=== PATIENT | male | born 1970 | race African-American/Black ===

== ENCOUNTER 2016-10-06 13:12 | Emergency (ER) | payer OTHER ==
--- NOTE | 2016-10-07 16:21 | ED NURSING NOTES ---
Clinical Report - Nurses [facility] [address] [place] [address] 10/06/2016 13:12 Patient: CHING AVITIA TRIAGE Triage time 13:Oct 06 2016. Acuity: LEVEL 5. Chief Complaint: DEPRESSION and SUICIDAL THOUGHTS and (Patient has been struggling with self harm for 2 years). 13:34 10/06/16. SEPSIS SCREEN: Sepsis Screen. Negative (no infection suspected/documented). DONNA COMA SCORE: Donna Coma Scale: 15- eyes open spontaneously (4); best verbal response- oriented x 4 (5); best motor response- obeys commands (6). --13:34 Arlene Quintana R.N. 13:27 10/06/16. BP: 155/99 (large adult cuff) taken on the right arm, while sitting. HR: 72 (regular). RR: 18 (regular). O2 saturation: 98% on room air. Temp: 99 F. Pain level now: 0/10. --13:34 Arlene Quintana R.N. late entry - 13:35 10/06/16. --13:43 Arlene Quintana R.N. 13:35 10/06/16. --13:35 Arlene Quintana R.N. late entry - 13:27. --18:02 Alrene Quintana R.N. Weight: 105.2 kg stated. Height/Length: 73 inches Per Patient. BMI: 30.6. --13:25 Arlene Quintana R.N. Medications Unknown. --13:31 Arlene Quintana R.N. Allergies No Known Drug Allergy. --13:31 Arlene Quintana R.N. History <<STRICKEN ENTRY-- Arrived by EMS, and from home. Historian: patient. ( Patient has a been struggling with self harm for two years, his PCP called 911 to transport patient to ER because patient said he had a knife and was threatening to harm himself). SOCIAL HX: Current every day light tobacco smoker. History of occasional drug use: marijuana. No alcohol use. NUTRITIONAL RISK ASSESSMENT: The nutritional risk assessment revealed no deficiencies. FUNCTIONAL ASSESSMENT: Functional assessment: no impairments noted. LEARNING NEEDS ASSESSMENT: The learning needs assessment revealed no barriers. SKIN INTEGRITY ASSESSMENT: Skin integrity risk assessment completed. No skin integrity risk identified. --13:34 Arlene Quintana R.N. --END STRIKE>> Correction --13:41 Arlene Quintana R.N. ( Arrived by EMS, and from home. Historian: patient. ( Patient has a been struggling with self harm for two years, his counselor Michelle Lopez called 911 to transport patient to ER because patient said he had a knife and was threatening to harm himself).). --13:43 Arlene Quintana R.N. ( Patients items are in locker #1 with lock #2). --18:02 Arlene Quintana R.N. PROBLEMS: Suicidal thoughts. Depression. --13:31 Arlene Quintana R.N. Schizoaffective Disorder. --09:56 Jesús Boyd R.N. ADDITIONAL SURGERIES: no known surgeries. Interventions ID band on patient. To treatment room. --13:34 Arlene Quintana R.N. PHYSICAL ASSESSMENT 13:36 10/06/16. To room via stretcher. Patient gowned. GENERAL / NEURO / PSYCH: Appears in no acute distress. Poor eye contact. He describes suicidal thoughts. ( Patient walks with cane). RESPIRATORY: Respirations not labored. --13:36 Arlene Quintana R.N. NURSING PROGRESS NOTES 13:36 17. Patient gowned. Head of bed elevated. Reassurance given. Two patient identifiers checked. Side rails up x 1. Bed placed in lowest position. Brakes of bed on. Patient ready for evaluation- chart flagged. --13:36 Arlene Quintana R.N. late entry -13:36. Suicide precautions initiated: a safety sweep of the room has been completed. Room made safe and stripped of hazardous items. Continuous one on one supervision, clothing / valuables removed and placed in the safe, meds removed and placed in the safe. Patient placed in direct sight of the nurse's station (Patient dressed in yellow gown). --13:40 Arlene Quintana R.N. 15:55 10/06/16. BP: 161/103 (large adult cuff) taken on the right arm, via an automated monitor, while lying. RN notified. HR: 69. RR: 20. O2 saturation: 99% on room air. Temp: 97.9 F (oral). --15:56 Natasha Edwards 16:19 10/06/16. ( Asked if patient can leave a urine and he says he can't at this time, offered sandwich and water. Patient accepted sandwich and soda pop). --16:19 Arlene Quintana R.N. 18:04 10/06/16. ( Patient doing well, he doesn't need anything at this time.). --18:04 Arlene Quintana R.N. 18:03 10/06/16. BP: 147/93 (large adult cuff) taken on the right arm, while sitting. HR: 75. RR: 16. O2 saturation: 95% on room air. Temp: 98.7 F (oral). Pain level now: 0/10. --18:04 Arlene Quintana R.N. 18:21 10/06/16. ( [facility] has arrived and is with patient). --18:21 Arlene Quintana R.N. 07:12 10/07/16. Care transferred and report received (Biju). ( Patient sleeping when checked on patient). --07:13 Arlene Quintana R.N. 08:57 10/07/16. ( Patient finished breakfast about an hour ago, he says he doesn't need anything at this time). --08:57 Arlene Quintana R.NSergio 08:56 10/07/16. BP: 141/88 (large adult cuff) taken on the right arm, while lying. HR: 86. RR: 18. O2 saturation: 96% on room air. Temp: 98.3 F. Pain level now: 0/10. --08:57 Arlene Quintana R.NSergio 10:55 10/07/16. ( Patient doing well, sleeping after using urinal). --10:55 Arlene Quintana R.N. 12:01 10/07/16. ( Patient had lunch and says he does not need anything more at this time). --12:01 Arlene Quintana R.N. 13:23 10/07/16. ( Checked on patient he does not need anything at this time). --13:23 Arlene Quintana R.N. 13:35 10/07/16. ( PAT team here to evaluate patient). --13:35 Arlene Quintana R.N. 17:18 10/07/16. ( Patient given clothes and all items to patient). --17:18 Arlene Quintana R.N. 17:19 10/07/16. ( [facility] has been called and ETA 1720). --17:19 Arlene Quintana R.N. DISPOSITION / DISCHARGE 17:37 10/07/16. Departure time: 1730. Condition at departure: improved and stable. No learning barriers present. Discharge instructions provided and reviewed with the patient. Reviewed referrals. Patient verbalized understanding. Written instructions provided in [place]. The patient was discharged by the physician. He was discharged home. He left the Emergency Department ambulatory and via ([facility]). --17:37 Jesús Boyd R.N. 17:00 10/07/16. BP: 140/88. HR: 80. RR: 16. O2 saturation: 97% on room air. Temp: 98.3 F (oral). Pain level now: 0/10. --17:37 Jesús Boyd R.N. Locked/Released at 10/07/2016 18:31 by Arlene Quintana R.N.
--- NOTE | 2016-10-07 16:21 | ED ORDER SUMMARY ---
..... Patient: CHING AVITIA OrderSheet [facility] VisitID: [id number] [address] [place] [address] 46y, M Registration Date/Time: 10/06/2016 ORDER SHEET Weight: 105.2 kg (stated) Allergies: No Known Drug Allergy GENERAL ORDERS: CBC w Diff Urgent (14:34 10/06/2016 Sarah Muñoz) (Ack 14:36 Jihan) (16:16 JSanders R.N.) CMP Urgent (14:34 10/06/2016 Sarah Muñoz) (Ack 14:36 Katener) (16:16 JSanders R.N.) PT with INR Urgent (14:34 10/06/2016 Sarah Muñoz) (Ack 14:36 KARLAoebinhner) (16:16 JSanders R.N.) Ethyl Alcohol Urgent (14:34 10/06/2016 Sarah Muñoz) (Ack 14:36 Katener) (16:17 JSanders R.N.) Salicylate Level Urgent (14:34 10/06/2016 Sarah Muñoz) (Ack 14:36 Katener) (16:17 JSanders R.N.) Acetaminophen Level Urgent (14:34 10/06/2016 Sarah Muñoz) (Ack 14:36 KARLAoekasia) (16:17 JSanders R.N.) Urine Drug Screen Urgent (14:34 10/06/2016 Sarah Muñoz) (Ack 14:36 Jihan) (16:26 JSanders R.N.) Diet (Please order in [employer]) (finger foods only) (19:54 10/06/2016 Sarah Muñoz) (Ack 21:39 CHategekimana) (21:39 CHategekimana) MEDICATION ORDERS: IV FLUIDS: ORDER SHEET NOTES: [Electronically signed by Arlene Quintana R.N. (18:31 10/07/2016)] [Electronically signed by Noemi Richter MD (06:05 10/11/2016)] [Electronically locked/signed by Arlene Quintana R.N. (18:31 10/07/2016)]
--- NOTE | 2016-10-07 16:21 | ED CLINICAL REPORT ---
Clinical Report - Physicians/Mid Levels [facility] [address] [place] [address] 10/06/2016 13:12 Patient: CHING AVITIA Time Seen: 1327. Arrived- By ambulance. Historian- patient. Referred by a clinic. HISTORY OF PRESENT ILLNESS Chief Complaint: DEPRESSED and SUICIDAL THOUGHTS and AUDITORY HALLUCINATIONS. This started about 2 days ago. The patient has experienced situational problems related to monetary problems and being homeless but was not found wandering and is compliant with medication. No recent drug use or alcohol consumption. Has been depressed. Has had suicidal thoughts (Knife). Has briefly considered suicide. Has highly lethal plan for suicide. The method is available. He has had moderate auditory hallucinations (Telling him to harm himself). The symptoms are described as moderate. No injury is present. Similar symptoms previously: Recent medical care: The patient was seen recently by a health care provider. REVIEW OF SYSTEMS No headache, dizziness, palpitations, abdominal pain or vomiting. No diarrhea, black stools, fever, sore throat or cough. No difficulty breathing, urinary frequency, skin rash, enlarged lymph nodes or joint pain. No laceration. All systems otherwise negative, except as recorded above. PAST HISTORY ( Suicidal thoughts. Depression.). Surgeries: No history of previous surgery. Additional Surgeries: no known surgeries. Medications: Unknown. Allergies: No Known Drug Allergy. SOCIAL HISTORY Smoker - current status unknown. History of drug use: marijuana. Has place to stay (For now, may be homeless soon). ADDITIONAL NOTES The nursing notes have been reviewed with agreement regarding the chief complaint, PMH and patient medications and allergies. PHYSICAL EXAM Vital Signs: 10/06/2016 13:27 BP: 155/99. HR: 72. RR: 18. O2 saturation: 98%. Temp: 99 F. Pain level now: 0/10. Have been reviewed. Hypertensive. Heart rate normal. Respiratory rate normal. Temperature normal. Oxygen saturation normal. Appearance: Alert. No acute distress. Appearance is normal. Eyes: Pupils equal, round and reactive to light. Neck: Normal inspection. Neck supple. CVS: Normal heart rate and rhythm. Heart sounds normal. Respiratory: No respiratory distress. Breath sounds normal. Abdomen: Soft and nontender. Back: No tenderness. Skin: Skin warm and dry. Normal skin color. Normal skin turgor. Extremities: Extremities exhibit normal ROM. No lower extremity edema. Psych / Neuro: Oriented X 3. Mood and affect normal. Speech normal. Cognition normal. Thought process and content normal. Insight and judgement normal. No motor deficit. No sensory deficit. LABS, X-RAYS, AND EKG Laboratory Tests: CBC w Diff: (JIM: 10/06/2016 14:14) ( MsgRcvd 10/06/2016 14:56) Final results Test Result Flag Units (Reference) WHITE BLOOD COUNT 6.2 K/uL (4.5-11.5) RED BLOOD COUNT 5.35 M/uL (4.50-5.90) HEMOGLOBIN 14.9 gm/dL (13.5-17.5) HEMATOCRIT 45.1 % (41.0-53.0) MEAN CELL VOLUME 84 fL (80-100) MEAN CORPUSCULAR HGB 28 pg (26-34) MEAN CORPUSCULAR HGB CONC 33 g/dL (31-37) RED CELL DISTRIBUTION WIDTH 15.5 H % (11.6-14.8) PLATELET COUNT 248 K/uL (150-400) NEUTROPHIL % 56.8 % (50-75) LYMPH % 35.3 % (25-40) MONO % 6.5 % (3-14) EOSINOPHIL % 0.7 % (0-4) BASOPHIL % 0.7 % (0-2) PT with INR: (JIM: 10/06/2016 14:14) ( MsgRcvd 10/06/2016 14:59) Final results Test Result Flag Units (Reference) INR 1.1 (0.8-1.2) Low Intensity Therapy: INR 1.5-2.0 PT range 18.5-23.1Mod.Intensity Therapy: INR 2.0-3.0 PT range 23.1-31.5High Intensity Therapy: INR 2.5-3.5 PT range 27.4-35.5High Intensity Therapy 2: INR 3.0-4.0 PT range 31.5-39.3 Urine Drug Screen: (JIM: 10/06/2016 16:23) ( [facility] 10/06/2016 17:02) Final results Test Result Flag Units (Reference) AMPHETAMINE/METHAMPHETAMINE NEGATIVE (NEGATIVE) BARBITURATE NEGATIVE (NEGATIVE) BENZODIAZEPINE NEGATIVE (NEGATIVE) CANNABINOID POSITIVE H (NEGATIVE) COCAINE NEGATIVE (NEGATIVE) ECSTASY NEGATIVE (NEGATIVE) METHADONE NEGATIVE (NEGATIVE) OPIATE NEGATIVE (NEGATIVE) The urine drug screen is a qualitative screening test fordrug overdose and abuse. All screen results should beconsidered as presumptive.Drugs screened for are as follows:BenzodiazepinesCocaineAmphetamines/MetamphetaminesTHC (Tetrahydrocannabinol)OpiatesBarbituratesEcstasyMethadonePositive results are unconfirmed. For confirmation, notifythe lab for the specimen to be sent to the reference lab.All confirmations must be performed by a differentmethodology.The ingestion of natural herbal and plant productscontaining Ephedra/Ephedra metabolites can produce in urineone or more substances capable of cross reacting withamphetamine/methamphetamine immunoassays. These testsprovide a preliminary result only. A more specificalternative chemical method must be used to obtain aconfirmed analytical result. Salicylate Level: (JIM: 10/06/2016 14:14) ( [facility] 10/06/2016 15:01) Final results Test Result Flag Units (Reference) SALICYLATE <2.8 L mg/dL (2.8-20) CMP: (JIM: 10/06/2016 14:14) ( [facility] 10/06/2016 15:07) Final results Test Result Flag Units (Reference) GLUCOSE 79 mg/dL (70-110) BUN 10 mg/dL (7-18) CREATININE 1.2 mg/dL (0.6-1.3) Estimated GFR >60 mL/min Estimated GFR- >60 mL/min Note: Persistent reduction over 3 months in eGFR<60 mL/min/1.73 m2 defines CKD. Patients with eGFR values>=60 mL/min/1.73 m2 may also have CKD if evidence ofpersistent proteinuria. Additional information may be foundat www.kidney.org. SODIUM 138 mmol/L (136-145) POTASSIUM 4.3 mmol/L (3.5-5.1) CHLORIDE 103 mmol/L (98-107) CARBON DIOXIDE 26 mmol/L (21-32) CALCIUM 8.5 mg/dL (8.5-10.1) TOTAL PROTEIN 8.2 g/dL (6.4-8.2) ALBUMIN 3.1 L g/dL (3.3-5.0) BILIRUBIN, TOTAL 0.5 mg/dL (0.0-1.0) ALKALINE PHOSPHATASE 94 U/L (46-116) AST (SGOT) 25 U/L (15-37) ALT (SGPT) 23 U/L (12-78) ACETAMINOPHEN < 2.0 L ug/mL (10-30) ETHYL ALCOHOL <3 L mg/dL (3-10) . Pulse Oximetry: 10/06/2016 13:27 O2 saturation: 98%. (FIO2 - room air). Interpretation: normal. PROGRESS AND PROCEDURES Course of Care: Pt assessed by PAT team, unable to place due to the fact he is a registered sex offender. Dx'd w/ Schizoaffective D/O. Unable to D/C safely. Will have [facility] social media marketing specialist evaluate in the AM. Neelam note: Pt was re-evaluated in the afternoon by the PAT team customer contact representative, and was found to be improved. He was ultimately cleared for discharge. Ashish was called for the pt with [facility]. Patient counseled in person regarding the patient's stable condition, test results, diagnosis and need for transfer. Concerns were addressed. Old medical records reviewed. Disposition: Discharged. Condition: stable and improved. CLINICAL IMPRESSION Adjustment disorder with depressed mood (acute). Acute psychosis with hallucinations. Acute schizophrenia. INSTRUCTIONS Warnings: GENERAL WARNINGS: Return or contact your physician immediately if your condition worsens or changes unexpectedly, if not improving as expected, or if other problems arise. Follow-up: Follow up with your doctor as needed. Understanding of the discharge instructions verbalized by patient. (Electronically signed by Noemi Richter MD 10/11/2016 6:05)
--- NOTE | 2016-10-07 16:21 | ED ORDER SUMMARY ---
..... Patient: CHING AVITIA OrderSheet [facility] VisitID: [id number] [address] [place] [address] 46y, M Registration Date/Time: 10/06/2016 ORDER SHEET Weight: 105.2 kg (stated) Allergies: No Known Drug Allergy GENERAL ORDERS: CBC w Diff Urgent (14:34 10/06/2016 Sarah Muñoz) (Ack 14:36 Jihan) (16:16 JSanders R.N.) CMP Urgent (14:34 10/06/2016 Sarah Muñoz) (Ack 14:36 Katener) (16:16 JSanders R.N.) PT with INR Urgent (14:34 10/06/2016 Sarah Muñoz) (Ack 14:36 KARLAoebinhner) (16:16 JSanders R.N.) Ethyl Alcohol Urgent (14:34 10/06/2016 Sarah Muñoz) (Ack 14:36 Katener) (16:17 JSanders R.N.) Salicylate Level Urgent (14:34 10/06/2016 Sarah Muñoz) (Ack 14:36 Katener) (16:17 JSanders R.N.) Acetaminophen Level Urgent (14:34 10/06/2016 Sarah Muñoz) (Ack 14:36 KARLAoekasia) (16:17 JSanders R.N.) Urine Drug Screen Urgent (14:34 10/06/2016 Sarah Muñoz) (Ack 14:36 Jihan) (16:26 JSanders R.N.) Diet (Please order in [email or web address]) (finger foods only) (19:54 10/06/2016 Sarah Muñoz) (Ack 21:39 CHategekimana) (21:39 CHategekimana) MEDICATION ORDERS: IV FLUIDS: ORDER SHEET NOTES: [Electronically signed by Arlene Quintana R.N. (18:31 10/07/2016)] [Electronically signed by Noemi Richter MD (06:05 10/11/2016)] [Electronically locked/signed by Arlene Quintana R.N. (18:31 10/07/2016)]
--- NOTE | 2016-10-11 06:06 | ED MAR SUMMARY ---
..... Medication Administration Record [facility] [address], [place] [id number] Patient: CHING AVITIA Visit ID: [id number] 46y, M Weight: 105.2 kg Height/Length: 73 in BMI: 30.6 ALLERGIES: No Known Drug Allergy
--- NOTE | 2016-10-11 06:06 | ED DISCHARGE INSTRUCTIONS ---
Patient: CHING AVITIA General Instructions [facility] VisitID: [id number] [place] [address] 46y, M Registration Date/Time: 10/06/2016 Adjustment disorder with depressed mood (acute). Acute psychosis with hallucinations. Acute schizophrenia. INSTRUCTIONS Warnings: GENERAL WARNINGS: Return or contact your physician immediately if your condition worsens or changes unexpectedly, if not improving as expected, or if other problems arise. Follow-up: Follow up with your doctor as needed. Understanding of the discharge instructions verbalized by patient. ADDITIONAL INFORMATION Adjustment Disorder An adjustment disorder is a condition that results from having a hard time coping with the normal stresses of life. You may feel you have too much to do and cant get it all done. These feelings may be triggered by divorce, job loss, someone you know dying, or by a positive event like getting a new job or getting . These feelings may interfere with your relationships at home and at work. With this condition, it is common to feel sad, guilty, hopeless and restless. These feelings may continue for weeks or months. It can be helpful to identify what is causing the additional stress and takes steps to get extra support. If new stressful events do not occur, it is likely that you will start feeling better within six months. Home Care: If you have been given a prescription for medicine, take it as directed. It helps to talk about your feelings and thoughts with family or friends that understand and support you. Follow Up with your doctor or therapist as advised by our staff. Let them know if this condition lasts more than six months without sign of improvement. For more information, contact the National [place] on Mental Illness at 476-004-6990 or visit www.nishant.org. Get Prompt Medical Attention if any of the following occur: Worsening depression or anxiety Feeling out of control Thoughts of harming yourself or another Being unable to care for yourself Schizophrenia [General Type] Schizophrenia is a chronic, severe and disabling brain disorder. The cause of schizophrenia is not yet known. It is believed to be a result of genetic and biological factors (brain chemistry and structure). Schizophrenia does run in families and occurs in about 1% of the adult population. Symptoms include: Hallucinations (seeing or hearing things that are not there) Delusions (false beliefs) Disorganized thinking and speech Social withdrawal Severe anxiety Feeling unreal Medicines and therapy can help with many of the symptoms and allow for better daily function and quality of life. These medicines take 2-4 weeks to begin working and 6-8 weeks to take full effect. It is common to feel that you are not ill and that you don't need treatment. It is important to accept the support of friends and family in continuing to take your medicine. Home Care: Be sure to take your medicine as directed even if you think you dont need it. Seek support from friends or family by talking about your feelings and thoughts. Follow Up with your doctor or therapist as advised by our staff. For more information, contact The National [place] for [employer]ness [phone] www.nishant.org Get Prompt Medical Attention if any of the following occur: Feeling like your symptoms are getting worse Feeling out of control or that you are being controlled by others Feeling like you want to harm yourself or another Unable to care for yourself Worsening hallucinations (hearing voices) Worsening depression or anxiety Psychosis Psychosis is a mental health problem. It causes a person to be out of touch with reality and affects a persons daily functioning. There are different kinds of psychosis: Drug-induced (due to alcohol, methamphetamine, cocaine, LSD, PCP and others) Bipolar disorder (formerly called Manic-Depression) Depression Schizophrenia Dementia Symptoms of psychosis can include: Hearing voices that others do not hear Seeing things that others do not see Racing thoughts Lack of energy Feeling extremely fearful Treatment for psychosis depends on the cause. Medicine, with or without psychotherapy, is often used. Home Care: Be sure to take your medicine as directed even if you think you don't need it. Talk with your family about your feelings and thoughts. Follow Up with your counselor, therapist or psychiatrist as advised by our staff. To learn more about this illness and available resources, contact your local mental health organization. National [place] [employer] Mental Illness: www.nishant.org Get Prompt Medical Attention if any of the following occur: Feeling like you want to harm yourself or another Feeling extremely depressed Feeling out of control or being controlled by others Unable to care for yourself You have been given the following additional information: Adjustment Disorder Schizophrenia, General Psychosis (Electronically signed by Noemi Richter MD 10/11/2016 6:05)
--- NOTE | 2016-10-11 06:06 | ED DISCHARGE INSTRUCTIONS ---
Patient: CHING AVITIA General Instructions [facility] VisitID: [id number] [place] [address] 46y, M Registration Date/Time: 10/06/2016 Adjustment disorder with depressed mood (acute). Acute psychosis with hallucinations. Acute schizophrenia. INSTRUCTIONS Warnings: GENERAL WARNINGS: Return or contact your physician immediately if your condition worsens or changes unexpectedly, if not improving as expected, or if other problems arise. Follow-up: Follow up with your doctor as needed. Understanding of the discharge instructions verbalized by patient. ADDITIONAL INFORMATION Adjustment Disorder An adjustment disorder is a condition that results from having a hard time coping with the normal stresses of life. You may feel you have too much to do and cant get it all done. These feelings may be triggered by divorce, job loss, someone you know dying, or by a positive event like getting a new job or getting . These feelings may interfere with your relationships at home and at work. With this condition, it is common to feel sad, guilty, hopeless and restless. These feelings may continue for weeks or months. It can be helpful to identify what is causing the additional stress and takes steps to get extra support. If new stressful events do not occur, it is likely that you will start feeling better within six months. Home Care: If you have been given a prescription for medicine, take it as directed. It helps to talk about your feelings and thoughts with family or friends that understand and support you. Follow Up with your doctor or therapist as advised by our staff. Let them know if this condition lasts more than six months without sign of improvement. For more information, contact the [employer] [facility] [employer] [facility] at 099-573-9676 or visit www.[facility].org. Get Prompt Medical Attention if any of the following occur: Worsening depression or anxiety Feeling out of control Thoughts of harming yourself or another Being unable to care for yourself Schizophrenia [General Type] Schizophrenia is a chronic, severe and disabling brain disorder. The cause of schizophrenia is not yet known. It is believed to be a result of genetic and biological factors (brain chemistry and structure). Schizophrenia does run in families and occurs in about 1% of the adult population. Symptoms include: Hallucinations (seeing or hearing things that are not there) Delusions (false beliefs) Disorganized thinking and speech Social withdrawal Severe anxiety Feeling unreal Medicines and therapy can help with many of the symptoms and allow for better daily function and quality of life. These medicines take 2-4 weeks to begin working and 6-8 weeks to take full effect. It is common to feel that you are not ill and that you don't need treatment. It is important to accept the support of friends and family in continuing to take your medicine. Home Care: Be sure to take your medicine as directed even if you think you dont need it. Seek support from friends or family by talking about your feelings and thoughts. Follow Up with your doctor or therapist as advised by our staff. For more information, contact The [employer] [facility] [phone] www.[facility].org Get Prompt Medical Attention if any of the following occur: Feeling like your symptoms are getting worse Feeling out of control or that you are being controlled by others Feeling like you want to harm yourself or another Unable to care for yourself Worsening hallucinations (hearing voices) Worsening depression or anxiety Psychosis Psychosis is a mental health problem. It causes a person to be out of touch with reality and affects a persons daily functioning. There are different kinds of psychosis: Drug-induced (due to alcohol, methamphetamine, cocaine, LSD, PCP and others) Bipolar disorder (formerly called Manic-Depression) Depression Schizophrenia Dementia Symptoms of psychosis can include: Hearing voices that others do not hear Seeing things that others do not see Racing thoughts Lack of energy Feeling extremely fearful Treatment for psychosis depends on the cause. Medicine, with or without psychotherapy, is often used. Home Care: Be sure to take your medicine as directed even if you think you don't need it. Talk with your family about your feelings and thoughts. Follow Up with your counselor, therapist or psychiatrist as advised by our staff. To learn more about this illness and available resources, contact your local mental health organization. [employer] [facility] [employer] [facility]: www.[facility].org Get Prompt Medical Attention if any of the following occur: Feeling like you want to harm yourself or another Feeling extremely depressed Feeling out of control or being controlled by others Unable to care for yourself You have been given the following additional information: Adjustment Disorder Schizophrenia, General Psychosis (Electronically signed by Noemi Richter MD 10/11/2016 6:05)
--- NOTE | 2016-10-11 06:06 | ED MED RECONCILIATION SUMMARY ---
Patient: CHING AVITIA Medication Reconciliation Report [facility] VisitID: [id number] [address] [place] [place] [address] 46y, M Registration Date/Time: 10/06/2016 Weight: 105.2 kg Height/Length: 73 in. BMI: 30.6 ALLERGIES: No Known Drug Allergy The patient's Home Medications are listed below: Unknown. The source(s) of the original Home Medication information: Not obtained. The following Medications were given to the patient in the Emergency Department: None. The following Medications were prescribed to the patient: None.
--- NOTE | 2016-10-11 06:06 | ED MED RECONCILIATION SUMMARY ---
Patient: CHING AVITIA Medication Reconciliation Report [facility] VisitID: [id number] [address] [place] [address] 46y, M Registration Date/Time: 10/06/2016 Weight: 105.2 kg Height/Length: 73 in. BMI: 30.6 ALLERGIES: No Known Drug Allergy The patient's Home Medications are listed below: Unknown. The source(s) of the original Home Medication information: Not obtained. The following Medications were given to the patient in the Emergency Department: None. The following Medications were prescribed to the patient: None.
--- NOTE | 2016-10-11 06:06 | ED MAR SUMMARY ---
..... Medication Administration Record [facility] [address] [place], [place] [id number] Patient: CHING AVITIA Visit ID: [id number] 46y, M Weight: 105.2 kg Height/Length: 73 in BMI: 30.6 ALLERGIES: No Known Drug Allergy
== END 2016-10-06 17:30 | disposition home or self-care (01) ==
LOC: ED SRH 13:12
DX: F43.21 Adjustment disorder with depressed mood (principal); F23 Brief psychotic disorder; R45.851 Suicidal ideations; F17.210 Nicotine dependence, cigarettes, uncomplicated
CPT/HCPCS: 90100; 92010; 92760; 92761; 92762; 92763; 92764; 92765; 92766; 92767; 92780; 94060; 95059; 97000